=== PATIENT | female | born 1965 | race Caucasian/White ===

== ENCOUNTER 2018-01-22 12:00 | Inpatient (IN) | payer BC ==
[2018-01-22] MEDS ORDERED: LIDOCAINE HCL/PF 2% SDV 5ML VIAL ONE ×2 (15:12→17:24)
[2018-01-22] MEDS ORDERED: ROCURONIUM BROMIDE 50 MG/5 ML VIAL ONE ×2 (15:12→16:33)
[2018-01-22] MEDS ORDERED: fentaNYL CITRATE 250 MCG/5 ML VIAL ONE (15:12)
[2018-01-22] MEDS ORDERED: DEXAMETHASONE SOD PHOSPHATE 4 MG/1 ML VIAL ONE (15:12)
[2018-01-22] MEDS ORDERED: MIDAZOLAM HCL 2 MG/2 ML SINGLE DOSE VIAL ONE (15:12)
[2018-01-22] MEDS ORDERED: PROPOFOL 20 ML ONE (15:12)
[2018-01-22] MEDS ORDERED: ONDANSETRON 4 MG/2 ML VIAL IVPUSH PRN ×2 (15:12→17:36)
[2018-01-22] MEDS ORDERED: LACTATED RINGERS SOLUTION 1,000 ML IV SCH (15:15)
[2018-01-22] MEDS ORDERED: NEOSTIGMINE METHYLSULFATE 0.5 MG/ML - 10 ML MDV ONE (17:16)
[2018-01-22] MEDS ORDERED: GLYCOPYRROLATE 0.2 MG/1 ML VIAL ONE (17:16)
[2018-01-22] MEDS ORDERED: BUPIVACAINE HCL/PF 0.25% (2.5MG/ML) 10 ML VIAL ONE (17:18)
[2018-01-22] MEDS ORDERED: BUPIVACAINE HCL/PF 0.5% (5MG/ML) 10 ML VIAL ONE (17:19)
[2018-01-22] MEDS ORDERED: BUPIVACAINE HCL/PF 0.5% (5MG/ML) 10 ML VIAL IJ ONE (17:36)
[2018-01-22] MEDS ORDERED: ALBUTEROL SO4 0.083% IH SOL 2.5 MG/3 ML VIAL.NEB. NEB PRN (17:42)
[2018-01-22] MEDS: ACETAMINOPHEN 1000 MG/100 ML VIAL (NON FORMULARY) IVPB ONE (17:50)
--- NOTE | 2018-01-22 17:53 | OP ---
Operative Note - Note: Operative Date: 01/22/18 Pre-Operative Diagnosis: Morbid Obesity Operation: Laparoscopic Vertical Sleeve Gastrectomy. Wedge Biopsy of Left lobe of liver. Diagnostic Laparoscopy Findings: Greater curve sleeve gastrectomy performed with #[address] Wedge biopsy performed on left lobe of liver Post-Operative Diagnosis: Same as Pre-op (Hepatomegaly) Surgeon: Jaspal Santamaria Medical Record Clerk: Willi Cintron Anesthesia: General Specimens Removed: Greater curve of stomach. wedge biopsy of left lobe of liver Estimated Blood Loss (mls): 200 Operative Report Dictated: Yes
[2018-01-22] MEDS ORDERED: SODIUM CHLORIDE 1,000 ML IV SCH (18:00)
[2018-01-22 18:05] LABS: HEMATOCRIT 41.3 % (32.4-45.2); HEMOGLOBIN 13.6 GM/dL (10.7-15.3); MCH 28.2 pg (25.7-33.7); MCHC 32.8 g/dl (32.0-36.0); MEAN CELL VOLUME 85.8 fl (80-96); PLATELET COUNT 214 K/MM3 (134-434); RBC 4.81 M/mm3 (3.60-5.2); RDW 16.3 % (11.6-15.6); WHITE BLOOD COUNT 9.3 K/mm3 (4.0-10.0)
[2018-01-22 18:27] LABS: ALBUMIN 3.7 g/dl (3.4-5.0); ANION GAP 10 (8-16); BILIRUBIN,TOTAL 0.3 mg/dL (0.2-1.0); BLOOD UREA NITROGEN 12 mg/dL (7-18); CALCIUM 8.6 mg/dL (8.5-10.1); CHLORIDE 107 mmol/L (98-107); CO2 24 mmol/L (21-32); GLUCOSE,RANDOM 171 mg/dL (74-106); POTASSIUM 4.7 mmol/L (3.5-5.1); SGOT/AST 65 U/L (15-37); SGPT/ALT 75 U/L (12-78); SODIUM 141 mmol/L (136-145)
[2018-01-22 18:28] LABS: ALK PHOS 100 U/L (45-117); TOT PROT 7.1 g/dl (6.4-8.2)
[2018-01-22] MEDS ORDERED: METOCLOPRAMIDE HCL INJECTION 10 MG/2 ML VIAL ONE (18:34)
[2018-01-22] MEDS ORDERED: FAMOTIDINE 20 MG/50 ML IVPB 20 MG/50 ML MG IVPB ONE (18:35)
[2018-01-22] MEDS: METOCLOPRAMIDE HCL INJECTION 10 MG/2 ML VIAL IVPUSH SCH ×2 (18:45→22:04)
--- NOTE | 2018-01-22 19:06 | OP ---
DATE OF OPERATION: 01/22/2018 PREOPERATIVE DIAGNOSIS: Morbid obesity. POSTOPERATIVE DIAGNOSIS: 1. Morbid obesity. 2. Hepatomegaly. PROCEDURE PERFORMED: 1. Laparoscopic vertical sleeve gastrectomy. 2. Wedge biopsy of the left lobe of the liver. 3. Diagnostic laparoscopy. OPERATING SURGEON: Kwame Ochoa M.D. LIME BOILER SURGEON: Willi Cintron M.D. ANESTHESIA: General. OPERATIVE PROCEDURE: The patient was brought into the operating room, placed on the OR table in the supine position. All precautions were taken initially including padding for the back and the feet, and Venodyne boots were placed on both lower extremities. At that point, the abdomen was prepped and draped in the usual manner. A Veress needle was placed in the left upper quadrant, and a pneumoperitoneum was established. A number 12 bladeless trocar was placed in the left upper quadrant through the trocar, laparoscopic camera was placed. Under direct vision, a number 15 bladeless trocar was placed in the midline in a supraumbilical position, and this was followed by a number 5 bladeless trocar in the right upper quadrant and number 5 bladeless trocar below the left costal margin. A Loli liver retractor was then placed in the epigastrium to retract the left lobe of the liver. The patient was then placed in 20-degree reverse Trendelenburg position by anesthesia. It was noted that the liver was extremely enlarged, difficult to retract because it was heavy and made visualization somewhat difficult. It was decided that with the patient's history of lung cancer, a liver biopsy would be performed. The Ligasure device used to cut out a triangle shape of the liver on the edge of the undersurface of the left lobe of the liver. This specimen was then sent off the field to pathology as a specimen, and any minor bleeding from parenchyma was easily controlled with the Ligasure and the electrocautery. At this juncture, the pylorus was noted on the distal stomach. 6 cm were measured approximately from here, and there on the greater curve the operating surgeon lifted the stomach toward the anterior abdominal wall as the bus assistant surgeon retracted the gastrocolic ligament inferiorly. The Ligasure was then used to dissect first the gastrocolic ligament and then the short gastric vessels off the greater curve of the stomach. This continued in a superior and vertical direction until the final short gastric vessel between the superior pole of the spleen and the proximal fundus was divided. At this juncture, anesthesia advanced the number 40 bougie. With the bougie held along the lesser curvature, a series of shahrzad were performed with the first 2 being black load shahrzad 6 cm in length along the bougie. This was then followed by a series of purple load shahrzad also 6 cm in length hugging the bougie, until final staple was fired in the left upper quadrant and the greater curve was now completely detached from the lesser curve. It should be noted that prior to firing shahrzad, both the anterior and posterior garcia were checked that they were intact, and then in an area of the esophagogastric junction approximately 1 to 1.5 cm serosa remained on the anterior and posterior surfaces. At this juncture, saline was placed around the staple line, anesthesia inflated the bougie which showed the entire stomach distended with no obstruction and no leaks were noted. At this point, there were 2 minor bleeding points noted at the staple line in the mid body of the stomach, and this was oversewn with the Endo Stitch to prevent any further bleeding. At this point, the resected greater curve was now removed through the number 15 trocar site, sent off the field as specimen to pathology. Under direct vision, the number 15 and number 12 trocar sites were closed with Endoclose device to prevent internal hernia and prevent bleeding. Under direct vision, all trocars were removed and pneumoperitoneum released. All trocar sites received 0.25% Marcaine, were closed with 4-0 Biosyn subcuticular fashion. The midline incision was first closed with 3-0 Vicryl in the subcutaneous tissue followed by 4-0 Biosyn subcuticular fashion. Dressings were applied, patient awoken from anesthesia and transferred out of the operation room to the recovery room in stable condition. Anesthesia in the case was general. Surgeon Dr. Ochoa. Animal Nursery Worker Dr. Cintron. Expected blood loss was 200 mL. Patient transferred to recovery room in stable condition. KWAME OCHOA M.D. [id number]
[2018-01-22] MEDS: FAMOTIDINE 20 MG/50 ML IVPB 20 MG/50 ML MG IVPB SCH (21:59)
[2018-01-22] MEDS: ENOXAPARIN NA (PORCINE) 40 MG/0.4 ML DISP.SYRIN SQ SCH (22:03)
--- NOTE | 2018-01-22 22:03 | CONSULT ---
Consult Consult Specialty:: Pulm/CCM Reason for Consultation:: Post-op Gastric sleeve - History of Present Illness Chief Complaint: Surgical site pain History of Present Illness: 52yow with PMHx of morbid obesity, COPD, hypothyroidism admitted today for elective laparoscopic gastric sleeve. She is transferred to ICU for post-op management. In the OR she had a laparoscopic greater curve sleeve gastrectomy and a wedge biopsy of the left lobe of the liver. EBL minimal, received 1200cc fluid and no UOP. In ICU BP 159/75, HR 86, O2 sat 100% on NC 3L. C/o 5/10 pain at Lt epigastric area. No n/v. - History Source History Provided By: Medical Record - Past Medical History ...LMP: 09/04/12 ...LMP Comment: IRREGULAR ...: No - Alcohol/Substance Use Hx Alcohol Use: Yes - Smoking History Smoking history: Former smoker Have you smoked in the past 12 months: No Aproximately how many cigarettes per day: 8 If you are a former smoker, when did you quit?: 12/10 Home Medications - Allergies Allergies/Adverse Reactions: Allergies Allergy/AdvReac Type Severity Reaction Status Date / Time Penicillins Allergy Intermediate Nausea Verified 01/21/18 16:40 oxycodone HCl [From Percocet] AdvReac Severe Verified 01/21/18 16:40 AGED CHEESE Allergy Severe Nausea Uncoded 01/21/18 16:40 - Home Medications Home Medications: Ambulatory Orders Budesonide/Formeterol Fumarate [SYMBICORT 80/4.5mcg -] 2 IH BID 01/21/18 Levothyroxine [Synthroid -] 125 mcg PO DAILY 01/21/18 Theophylline 150 mg PO BID 01/21/18 Tiotropium [place] [Spiriva] 1 cap IH DAILY 01/21/18 Acetaminophen W/ Codeine #3 [Tylenol # 3 -] 1 tab PO Q6H PRN #20 tablet MDD 4 Famotidine [Pepcid] 20 mg PO BID #60 tablet 01/22/18 Physical Exam Vital Signs: Vital Signs Temperature 97.8 F 01/22/18 20:35 Pulse Rate 97 H 01/22/18 21:00 Respiratory Rate 19 01/22/18 21:00 Blood Pressure 151/82 01/22/18 21:00 O2 Sat by Pulse Oximetry (%) 95 06/29/18 21:00 Constitutional: Yes: No Distress, Obese Eyes: Yes: Conjunctiva Clear, PERRL HENT: Yes: Atraumatic, Normocephalic Neck: Yes: Supple, Trachea Midline Cardiovascular: Yes: Regular Rate and Rhythm, S1, S2 Respiratory: Yes: Regular, CTA Bilaterally Gastrointestinal: Yes: Soft, Abdomen, Obese Renal/: Yes: [place] Present Edema: No Peripheral Pulses WNL: Yes Integumentary: Yes: WNL Wound/Incision: Yes: Clean/Dry, Well Approximated, Open to air Neurological: Yes: Alert, Oriented ...Motor Strength: WNL Psychiatric: Yes: Alert, Oriented Labs: CBC, BMP 01/22/18 17:46 01/22/18 17:46 CBC,CMP WBC 9.3 K/mm3 (4.0-10.0) 01/22/18 17:46 RBC 4.81 M/mm3 (3.60-5.2) 01/22/18 17:46 Hgb 13.6 GM/dL (10.7-15.3) 01/22/18 17:46 Hct 41.3 % (32.4-45.2) 01/22/18 17:46 MCV 85.8 fl (80-96) 01/22/18 17:46 MCH 28.2 pg (25.7-33.7) 01/22/18 17:46 MCHC 32.8 g/dl (32.0-36.0) 01/22/18 17:46 RDW 16.3 % (11.6-15.6) H 01/22/18 17:46 Plt Count 214 K/MM3 (134-434) 01/22/18 17:46 MPV 8.0 fl (7.5-11.1) 01/22/18 17:46 Sodium 141 mmol/L (136-145) 01/22/18 17:46 Potassium 4.7 mmol/L (3.5-5.1) 01/22/18 17:46 Chloride 107 mmol/L (98-107) 01/22/18 17:46 Carbon Dioxide 24 mmol/L (21-32) 01/22/18 17:46 Anion Gap 10 (8-16) 01/22/18 17:46 BUN 12 mg/dL (7-18) 01/22/18 17:46 Creatinine 1.0 mg/dL (0.55-1.02) 01/22/18 17:46 Creat Clearance w eGFR 57.78 (>60) 01/22/18 17:46 Random Glucose 171 mg/dL (74-106) H 01/22/18 17:46 Calcium 8.6 mg/dL (8.5-10.1) 01/22/18 17:46 Total Bilirubin 0.3 mg/dL (0.2-1.0) 01/22/18 17:46 AST 65 U/L (15-37) H 01/22/18 17:46 ALT 75 U/L (12-78) 01/22/18 17:46 Alkaline Phosphatase 100 U/L (45-117) 01/22/18 17:46 Total Protein 7.1 g/dl (6.4-8.2) 01/22/18 17:46 Albumin 3.7 g/dl (3.4-5.0) 01/22/18 17:46 Current Medications Albuterol Sulfate (Ventolin 0.083% Nebulizer Soln -) 1 amp NEB Q6H PRN PRN Reason: SHORT OF BREATH/WHEEZING Enoxaparin Sodium (Lovenox -) 40 mg SQ BID [facility] Last Admin: 01/22/18 22:03 Dose: 40 mg Fentanyl (Sublimaze Injection -) 50 mcg IVPUSH [id number] PRN PRN Reason: PAIN-PACU ORDER X 4 DOSES ONLY Last Admin: 01/22/18 20:25 Dose: 50 mcg Famotidine/Sodium Chloride (Pepcid 20 Mg Premixed Ivpb -) 20 mg in 50 mls @ 100 mls/hr IVPB BID [facility] Last Admin: 01/22/18 21:59 Dose: 100 mls/hr Sodium Chloride (Normal Saline -) 1,000 mls @ 150 mls/hr IV ASDIR [facility] Last Admin: 01/22/18 18:00 Dose: 150 mls/hr Metoclopramide HCl (Reglan Injection -) 10 mg IVPUSH Q6H-IV [facility]JESH Last Admin: 01/22/18 22:04 Dose: 10 mg Morphine Sulfate (Morphine Sulfate) 1 mg IVPUSH Q3H PRN PRN Reason: PAIN LEVEL 1-5 Ondansetron HCl (Zofran Injection) 4 mg IVPUSH Q6H PRN PRN Reason: NAUSEA AND/OR VOMITING Ondansetron HCl (Zofran Injection) 4 mg IVPUSH Q4H PRN PRN Reason: NAUSEA AND/OR VOMITING Imaging - Results Chest X-ray: Report Reviewed Problem List - Problems (1) Morbid obesity Code(s): E66.01 - MORBID (SEVERE) OBESITY DUE TO EXCESS CALORIES (2) History of laparoscopic partial gastrectomy Code(s): Z90.3 - ACQUIRED ABSENCE OF STOMACH [PART OF] (3) COPD (chronic obstructive pulmonary disease) Code(s): J44.9 - CHRONIC OBSTRUCTIVE PULMONARY DISEASE, UNSPECIFIED Assessment/Plan 52yo morbidly obese woman transferred to ICU for [facility] s/p laparoscopic gastric sleeve. Plan: -Management as per surgery -Monitor for bleeding, wound dehiscence -Zofran for n/v -NPO for now -Morphine prn pain -Cont COPD nebs -Incentive spirometer -DVT and GI prophylaxis BRITTANY Kent CC time 35mins
[2018-01-23] MEDS: MORPHINE SULFATE 2 MG/ML VIAL IVPUSH PRN ×2 (00:05→03:38)
[2018-01-23] MEDS: METOCLOPRAMIDE HCL INJECTION 10 MG/2 ML VIAL IVPUSH SCH ×4 (03:29→21:12)
[2018-01-23 06:18] LABS: MCH 28.5 pg (25.7-33.7); MCHC 33.2 g/dl (32.0-36.0); MEAN CELL VOLUME 85.7 fl (80-96); PLATELET COUNT 191 K/MM3 (134-434); RDW 16.1 % (11.6-15.6); WHITE BLOOD COUNT 10.2 K/mm3 (4.0-10.0)
[2018-01-23 06:34] LABS: ALBUMIN 3.1 g/dl (3.4-5.0); ANION GAP 6 (8-16); BLOOD UREA NITROGEN 11 mg/dL (7-18); CHLORIDE 107 mmol/L (98-107); CO2 26 mmol/L (21-32); GLUCOSE,RANDOM 125 mg/dL (74-106); POTASSIUM 4.4 mmol/L (3.5-5.1); SODIUM 139 mmol/L (136-145)
[2018-01-23 06:38] LABS: ALK PHOS 82 U/L (45-117); BILIRUBIN,TOTAL 0.3 mg/dL (0.2-1.0); CREATININE 0.8 mg/dL (0.55-1.02); SGOT/AST 47 U/L (15-37); SGPT/ALT 68 U/L (12-78); TOT PROT 6.3 g/dl (6.4-8.2)
[2018-01-23] MEDS ORDERED: ACETAMINOPHEN 1000 MG/100 ML VIAL (NON FORMULARY) IVPB ONE (09:26)
[2018-01-23] MEDS: FAMOTIDINE 20 MG/50 ML IVPB 20 MG/50 ML MG IVPB SCH ×2 (09:27→21:13)
[2018-01-23] MEDS: ENOXAPARIN NA (PORCINE) 40 MG/0.4 ML DISP.SYRIN SQ SCH ×2 (09:27→21:12)
[2018-01-23] MEDS ORDERED: SODIUM CHLORIDE 1,000 ML IV SCH (15:45)
[2018-01-23] MEDS ORDERED: ACETAMINOPHEN WITH CODEINE 300MG/30MG TABLET PO PRN (15:46)
[2018-01-23] MEDS ORDERED: ACETAMINOPHEN 325 MG TABLET (FP) PO PRN (15:47)
--- NOTE | 2018-01-23 15:51 | PROC ---
Procedure Note Procedure: POD#1 Afebrile;VSS P-76-92 BP-137/73 Pt doing well No N/V P/E-Abd- trocar sites clean,dry UGI- no leak, no obstruction noted WBC-10.2 H/H-12/36 P-Begin PO clear liquids- 2 oz po tid Encourage OOB-ambulate, incentive spirometer Cont Scd's, Lovenox
[2018-01-23] MEDS ORDERED: ACETAMINOPHEN 650 MG/20.3 ML ORAL SOLUTION (CUPS) PO PRN ×2 (20:30→20:33)
[2018-01-23] MEDS: ACETAMINOPHEN 1000 MG/100 ML VIAL (NON FORMULARY) IVPB ONE (20:44)
[2018-01-23] MEDS: BUDESONIDE/FORMETEROL FUMARATE 80/4.5 mcg INHALER IH SCH (21:14)
--- NOTE | 2018-01-23 21:41 | PN ---
Progress Note (short form) - Note Progress Note: CCM Seen and examined in ICU 24HR: no acute events Upper GI series without acute reflux started on clears Vital Signs Temp 98.4 F 01/23/18 15:00 Pulse 96 H 01/23/18 20:00 Resp 18 01/23/18 20:00 BP 138/77 01/23/18 20:00 Pulse Ox 98 01/23/18 20:00 Intake & Output 01/22/18 01/23/18 01/23/18 23:59 11:59 23:59 Intake Total 1600 1458 1590 Output Total 10 Balance 1590 1458 1590 Weight 119.748 kg 123.094 kg Intake: IV 1600 1408 940 Normal Saline - 1,000 ml 1408 450 @ 150 mls/hr IV ASDIR RAJESH Rx#:[id number] Normal Saline - 1,000 ml 490 @ 75 mls/hr IV ASDIR RAJESH Rx#:[id number] IVPB 50 350 Oral 300 Output: Estimated Blood Loss 10 Other: Voiding Method Bedpan Toilet Toilet # Unmeasured Voids Void 1 3 Bowel Movement No No Height 5 ft 4 in Body Mass Index (BMI) 45.3 Weight Measurement Method Stated by Patient Built in Bedscale CBC,CMP WBC 10.2 K/mm3 (4.0-10.0) H 01/23/18 05:30 RBC 4.20 M/mm3 (3.60-5.2) 01/23/18 05:30 Hgb 12.0 GM/dL (10.7-15.3) 01/23/18 05:30 Hct 36.0 % (32.4-45.2) 01/23/18 05:30 MCV 85.7 fl (80-96) 01/23/18 05:30 MCH 28.5 pg (25.7-33.7) 01/23/18 05:30 MCHC 33.2 g/dl (32.0-36.0) 01/23/18 05:30 RDW 16.1 % (11.6-15.6) H 01/23/18 05:30 Plt Count 191 K/MM3 (134-434) 01/23/18 05:30 MPV 8.0 fl (7.5-11.1) 01/23/18 05:30 Sodium 139 mmol/L (136-145) 01/23/18 05:30 Potassium 4.4 mmol/L (3.5-5.1) 01/23/18 05:30 Chloride 107 mmol/L (98-107) 01/23/18 05:30 Carbon Dioxide 26 mmol/L (21-32) 01/23/18 05:30 Anion Gap 6 (8-16) L 01/23/18 05:30 BUN 11 mg/dL (7-18) 01/23/18 05:30 Creatinine 0.8 mg/dL (0.55-1.02) 01/23/18 05:30 Creat Clearance w eGFR > 60 (>60) 01/23/18 05:30 Random Glucose 125 mg/dL (74-106) H 01/23/18 05:30 Calcium 8.0 mg/dL (8.5-10.1) L 01/23/18 05:30 Total Bilirubin 0.3 mg/dL (0.2-1.0) 01/23/18 05:30 AST 47 U/L (15-37) H 01/23/18 05:30 ALT 68 U/L (12-78) 01/23/18 05:30 Alkaline Phosphatase 82 U/L (45-117) D 01/23/18 05:30 Total Protein 6.3 g/dl (6.4-8.2) L 01/23/18 05:30 Albumin 3.1 g/dl (3.4-5.0) L 01/23/18 05:30 Active Medications Acetaminophen (Tylenol Oral Solution -) 650 mg PO Q8H PRN PRN Reason: HEADACHE Acetaminophen/Codeine Phosphate (Tylenol # 3 -) 1 tab PO Q4H PRN PRN Reason: PAIN LEVEL 1-5 Albuterol Sulfate (Ventolin 0.083% Nebulizer Soln -) 1 amp NEB Q6H PRN PRN Reason: SHORT OF BREATH/WHEEZING Budesonide/Formoterol Fumarate (Symbicort 80/4.5mcg -) 2 puff IH BID [facility] Last Admin: 01/23/18 21:14 Dose: 2 puff Enoxaparin Sodium (Lovenox -) 40 mg SQ BID [facility] Last Admin: 01/23/18 21:12 Dose: 40 mg Fentanyl (Sublimaze Injection -) 50 mcg IVPUSH [id number] PRN PRN Reason: PAIN-PACU ORDER X 4 DOSES ONLY Last Admin: 01/22/18 20:25 Dose: 50 mcg Famotidine/Sodium Chloride (Pepcid 20 Mg Premixed Ivpb -) 20 mg in 50 mls @ 100 mls/hr IVPB BID [facility] Last Admin: 01/23/18 21:13 Dose: 100 mls/hr Sodium Chloride (Normal Saline -) 1,000 mls @ 75 mls/hr IV ASDIR [facility] Last Admin: 01/23/18 20:44 Dose: Not Given Levothyroxine Sodium (Synthroid -) 125 mcg PO DAILY@0700 [facility] Metoclopramide HCl (Reglan Injection -) 10 mg IVPUSH Q6H-IV RAJESH Last Admin: 01/24/18 02:57 Dose: 10 mg Morphine Sulfate (Morphine Sulfate) 1 mg IVPUSH Q3H PRN PRN Reason: PAIN LEVEL 1-5 Last Admin: 01/23/18 03:38 Dose: 1 mg Non-Formulary Med ( (Theophylline 150mg)) 1 each PO BID [facility] Ondansetron HCl (Zofran Injection) 4 mg IVPUSH Q6H PRN PRN Reason: NAUSEA AND/OR VOMITING Ondansetron HCl (Zofran Injection) 4 mg IVPUSH Q4H PRN PRN Reason: NAUSEA AND/OR VOMITING Tiotropium [place] (Spiriva -) 1 puff IH DAILY [facility] Constitutional: Yes: No Distress, Obese Eyes: Yes: Conjunctiva Clear, PERRL HENT: Yes: Atraumatic, Normocephalic Neck: Yes: Supple, Trachea Midline Cardiovascular: Yes: Regular Rate and Rhythm, S1, S2 Respiratory: Yes: Regular, CTA Bilaterally Gastrointestinal: Yes: Soft, Abdomen, Obese Renal/: Yes: [place] Present Edema: No Peripheral Pulses WNL: Yes Integumentary: Yes: WNL Wound/Incision: Yes: Clean/Dry, Well Approximated, Open to air Neurological: Yes: Alert, Oriented ...Motor Strength: WNL Psychiatric: Yes: Alert, Oriented 52yo morbidly obese woman transferred to ICU for moniotring s/p laparoscopic gastric sleeve. Plan: -Management as per surgery -Monitor for bleeding -Zofran for n/v -Clears -Morphine prn pain -Cont COPD nebs -Incentive spirometer -DVT and GI prophylaxis -Ok for tx Soniya ACNP [id number]
[2018-01-23] MEDS ORDERED: THEOPHYLLINE 150 MG PO SCH (22:00)
[2018-01-24] MEDS: METOCLOPRAMIDE HCL INJECTION 10 MG/2 ML VIAL IVPUSH SCH ×2 (02:57→09:45)
[2018-01-24] MEDS ORDERED: LEVOTHYROXINE NA 125 MCG TABLET (FP) PO SCH (07:00)
[2018-01-24] MEDS ORDERED: ACETAMINOPHEN 1000 MG/100 ML VIAL (NON FORMULARY) IVPB ONE (09:02)
--- NOTE | 2018-01-24 09:36 | EKG ---
Test Reason : Blood Pressure : / mmHG Vent. Rate : 075 BPM Atrial Rate : 075 BPM P-R Int : 138 ms QRS Dur : 074 ms QT Int : 396 ms P-R-T Axes : 068 051 046 degrees QTc Int : 442 ms NORMAL SINUS RHYTHM NORMAL ECG WHEN COMPARED WITH ECG OF 17-DEC-2017 11:56, NO SIGNIFICANT CHANGE WAS FOUND Confirmed by ANDI MARTINEZ MD ([id number]) on 01/24/2018 9:35:42 AM Referred By: Nhi ALFRED Confirmed By:ANDI MARTINEZ MD
[2018-01-24] MEDS ORDERED: PT OWN MED DRAWER 7, Y5N ONE (09:40)
[2018-01-24] MEDS: ENOXAPARIN NA (PORCINE) 40 MG/0.4 ML DISP.SYRIN SQ SCH (09:45)
[2018-01-24] MEDS: FAMOTIDINE 20 MG/50 ML IVPB 20 MG/50 ML MG IVPB SCH (09:45)
[2018-01-24] MEDS ORDERED: TIOTROPIUM BROMIDE 18 MCG CAPSULES IH SCH (10:00)
[2018-01-24] MEDS: BUDESONIDE/FORMETEROL FUMARATE 80/4.5 mcg INHALER IH SCH (10:15)
[2018-01-24] MEDS: MORPHINE SULFATE 2 MG/ML VIAL IVPUSH PRN (10:53)
[2018-01-24 14:28] VITALS: BMI 46.3
[2018-01-24 14:29] VITALS: BP 138/84; PULSE 91; TEMP 98.3
--- NOTE | 2018-01-24 14:53 | PN ---
Progress Note (short form) - Note Progress Note: POD#2 Afebrile;VSS Pt doing well No N/V SA02- 96% Tolerating PO clear liquids- 3 oz PO TID P/E-Abd- all trocar sites clean, dry CXR-no major change; possible slight LLL atelectasis P- D/C pt home PO clear liquids- 3 oz PO 4-5 times per day F/U in 4 days
--- NOTE | 2018-02-01 15:17 | PATH ---
Surgical Pathology Report Patient Name: BARBARA WREN [facility]. Rec. #: [id number] /Age/Gender: 1965 (Age: 52) / F Account: [id number] Location: ICU RESIDENTIAL SALES MANAGER Taken: 01/22/2018 Received: 01/25/2018 Reported: 02/01/2018 Physicians: Jaspal Santamaria M.D. Specimen(s) Received A: LIVER BIOPSY B: GREATER CURVATURE STOMACH Clinical History Morbid obesity Final Diagnosis A. LIVER, BIOPSY: LIVER PARENCHYMA SHOWING MODERATE TO MARKED STEATOSIS (~70%) AND MILD STEATOHEPATITIS (GRADE 1). TRICHROME STAIN SHOWS FOCAL PERISINUSOIDAL/PERICELLULAR FIBROSIS (STAGE I). IRON STAIN IS NEGATIVE. B. STOMACH, LAPAROSCOPIC VERTICAL SLEEVE GASTRECTOMY: PORTION OF STOMACH SHOWING MILD CHRONIC MUCOSAL INFLAMMATION. IMMUNOSTAIN IS NEGATIVE FOR H. PYLORI ORGANISMS. Electronically Signed Pam Zuniga M.D. Gross Description A. Received in formalin labeled "liver biopsy," is a 2.2 x 1.6 x 0.3 cm portion of adams soft tissue, consistent with liver tissue. The specimen is entirely submitted in one cassette. B. Received in formalin, labeled "stomach," is a 67 gram, 15.0 x 3.5 x 2.4 cm. portion of stomach with a stapled margin of resection. The serosa is adams-leonard with minimal attached fat. The mucosa is adams-pink with normal folds. No mucosal masses are identified. Pest Control Service Technician sections are submitted in one cassette. /01/25/201801/25/2018
== END 2018-01-24 15:40 | disposition home or self-care (01) | DRG 621 ==
LOC: EDSTATUS 12:00 → JSAMEDAYSX 12:39 → JICU 20:39
PROVIDERS: ADMIT Surgery; ATTEND Surgery
PROC: 0DB64Z3 Excision of Stomach, Percutaneous Endoscopic Approach, Vertical (ICD-10-PCS; principal; 2018-01-22 14:00)
PROC: 0FB24ZX Excision of Left Lobe Liver, Percutaneous Endoscopic Approach, Diagnostic (ICD-10-PCS; 2018-01-22 14:00)
DX: E66.01 Morbid (severe) obesity due to excess calories (principal); Z68.42 Body mass index [BMI] 45.0-49.9, adult; R16.0 Hepatomegaly, not elsewhere classified; J44.9 Chronic obstructive pulmonary disease, unspecified; E03.9 Hypothyroidism, unspecified; Z87.891 Personal history of nicotine dependence
CPT/HCPCS: 36415; 71045-TC-FY; 74241-TC-FY; 80053; 85027; 86850; 86900; 86901; 88305-TC; 93005; 93010; 94760; J0131; J7030

== ENCOUNTER 2020-11-16 05:56 | Day surgery (SDC) | payer BC ==
[2020-11-08 15:00] VITALS: BMI 40.1
[2020-11-16] MEDS ORDERED: BUPIVACAINE HCL/PF 0.25% (2.5MG/ML) 10 ML VIAL ONE (07:19)
[2020-11-16] MEDS ORDERED: LIDOCAINE HCL 1%, 10 MG/ML (20ML VIAL) ONE (07:19)
[2020-11-16] MEDS ORDERED: PROPOFOL 20 ML ONE ×3 (07:32)
[2020-11-16] MEDS ORDERED: MIDAZOLAM HCL 2 MG/2 ML SINGLE DOSE VIAL ONE (07:32)
[2020-11-16] MEDS ORDERED: SUCCINYLCHOLINE CHLORIDE 200 MG/10 ML SYRINGE ONE (07:32)
[2020-11-16] MEDS ORDERED: DEXAMETHASONE SOD PHOSPHATE 4 MG/1 ML VIAL ONE (07:54)
[2020-11-16] MEDS ORDERED: KETOROLAC TROMETHAMINE 30 MG/1 ML VIAL ONE (07:54)
[2020-11-16] MEDS ORDERED: ONDANSETRON 4 MG/2 ML VIAL ONE (07:54)
[2020-11-16] MEDS ORDERED: ceFAZolin SODIUM 1 GM VIAL ONE (07:57)
[2020-11-16 09:08] VITALS: PULSE 66; TEMP 97.5
[2020-11-16 09:10] VITALS: BP 116/68
== END 2020-11-16 09:05 | disposition home or self-care (01) ==
LOC: FASU 05:56
PROVIDERS: ATTEND Orthopaedic Surgery
PROC: 01N50ZZ Release Median Nerve, Open Approach (ICD-10-PCS; principal; 2020-11-16 08:04)
PROC: 0LN80ZZ Release Left Hand Tendon, Open Approach (ICD-10-PCS; 2020-11-16 08:04)
DX: G56.02 Carpal tunnel syndrome, left upper limb (principal); M65.332 Trigger finger, left middle finger